=== PATIENT | female | born 1950 | race Caucasian/White ===

== ENCOUNTER 2018-05-04 14:46 | Emergency (ER) | payer OTHER ==
[~2018-05-04] VITALS: Ht 160 cm; Wt 86.2 kg
[2018-05-04] MEDS ORDERED: CELEBREX200MG ×2 (14:58→14:59)
[2018-05-04] MEDS ORDERED: AMBIEN CR12.5 MG (14:58)
[2018-05-04] MEDS ORDERED: EFFEXOR XR75 MG (14:58)
[2018-05-04] MEDS ORDERED: ATORVASTATIN CA20 MG (14:59)
[2018-05-04] MEDS ORDERED: COZAAR100 MG (14:59)
[2018-05-04] MEDS ORDERED: GLIPIZIDE ER2.5 MG (14:59)
[2018-05-04] MEDS ORDERED: CALAN80 MG (14:59)
[2018-05-04] MEDS ORDERED: XANAX0.25 MG (15:00)
[2018-05-04] MEDS ORDERED: [UNRECOGNIZED DRUG - OTHER] (15:00)
[2018-05-04] MEDS ORDERED: HYDROCHLOROTHIA25 MG (15:01)
== END 2018-05-04 22:05 | disposition home or self-care (01) ==
LOC: ER 14:46 → EDBD 15:06 → ER 15:06
DX: K52.89 Other specified noninfective gastroenteritis and colitis (principal); E86.0 Dehydration